=== PATIENT | male | born 1995 | race African-American/Black ===

== ENCOUNTER 2023-03-13 18:15 | Emergency (ER) | payer MEDICAID, OTHER ==
[~2023-03-13] VITALS: Ht 182.9 cm; Wt 72.0 kg
[2023-03-13 18:24] VITALS: BP 125/71; PULSE 95; RESP 14; TEMP 98.2; O2SAT 98
== END 2023-03-14 01:17 | disposition left against medical advice (07) ==
LOC: ER 18:15
DX: Z53.21 Procedure and treatment not carried out due to patient leaving prior to being seen by health care provider (principal)
CPT/HCPCS: 99281

== ENCOUNTER 2024-09-26 18:17 | Emergency (ER) | payer MEDICAID ==
[~2024-09-26] VITALS: Ht 177.8 cm; Wt 82.0 kg
[~2024-09-26 18:17] MED LIST: BICT1TAB3 PO; CLIN-194 PO; DARU1TAB PO; TOPUD PO
[2024-09-26 18:18] VITALS: TEMP 36.7; O2SAT 18
[2024-09-26 19:39] LABS: BASOPHILS % 0.6 % (0.0-2.0); EOSINOPHILS % 0.8 % (0.0-5.0); HEMATOCRIT. 38.3 % (42.0-52.0); HEMOGLOBIN. 12.2 g/dL (14.0-18.0); LYMPHOCYTES % 34.2 % (20.0-50.0); MEAN CORPUSCULAR HEMOGLOBIN 28.1 pg (28.0-32.0); MEAN CORPUSCULAR HGB CONC 31.8 g/dL (31.0-37.0); MEAN CORPUSCULAR VOLUME 88.3 fL (80.0-94.0); MEAN PLATELET VOLUME 10.7 fl (7.4-10.4); MONOCYTES % 13.1 % (2.0-8.0); NEUTROPHILS % 51.3 % (40.0-76.0); PLATELET 209 x1000/uL (130-400); RED BLOOD CELL COUNT 4.33 mill/uL (4.7-6.1); RED CELL DISTRIBUTION WIDTH 13.9 % (11.6-14.6); WHITE BLOOD COUNT 11.1 x1000/uL (4.5-11.0)
[2024-09-26 19:46] LABS: CHLORIDE 100 mEq/L (98-107); POTASSIUM 4.2 mEq/L (3.5-5.1); SODIUM 136 mEq/L (136-145)
[2024-09-26 19:48] LABS: CALCIUM 9.3 mg/dL (8.7-10.4); CARBON DIOXIDE 29 mEq/L (21-32)
[2024-09-26 19:53] LABS: CREATININE 1.1 mg/dL (0.6-1.3); GLUCOSE 106 mg/dL (70-105); TROPONIN I HIGH SENSITIVITY 7 ng/L (3.0-53); UREA NITROGEN BLOOD 13 mg/dL (9-23)
[2024-09-26 21:41] LABS: TROPONIN I HIGH SENSITIVITY 8 ng/L (3.0-53)
[2024-09-26 21:56] VITALS: BP 128/76; PULSE 106; RESP 18; O2SAT 98
== END 2024-09-26 21:58 | disposition home or self-care (01) ==
LOC: ER 18:17
DX: R07.89 Other chest pain (principal)
CPT/HCPCS: 36415; 71045; 80048; 84484; 85025; 93005; 99285